=== PATIENT | male | born 2005 | race Caucasian/White ===

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

== ENCOUNTER 2023-08-01 14:37 | Outpatient (CLI) | payer OTHER | END 2023-08-01 14:38 | disposition home or self-care (01) | LOC: SCSRAD 14:37 | PROVIDERS: ATTEND Physician Assistant | DX: M54.50 Low back pain, unspecified (principal); M47.816 Spondylosis without myelopathy or radiculopathy, lumbar region | CPT/HCPCS: 72100 ==